=== PATIENT | male | born 1935 | race African-American/Black ===

== ENCOUNTER 2024-05-25 12:14 | Emergency (ER) | payer OTHER, MEDICARE ==
[~2024-05-25] VITALS: Ht 177.8 cm; Wt 90.0 kg
[~2024-05-25 12:14] MED LIST: AMI2 PO; APIX5TAB MT; DIGO-28 PO; IPRA3AMP9 HHN; MIDO5TAB4 PO
[2024-05-25] MEDS: DILTIAZEM HCL 5MG/ML 5ML VIAL IV NR (13:45)
[2024-05-25] MEDS: DILTIAZEM HCL 5MG/ML 5ML VIAL IV ONE (14:33)
[2024-05-25] MEDS: ONDANSETRON HCL 4MG/2ML INJ IV ONE (15:18)
[2024-05-25] MEDS ORDERED: DILTIAZEM HCL 125 MG in DEXT 5% WATER 100 ML IV NR (15:30)
[2024-05-25] MEDS: DILTIAZEM HCL 125 MG in DEXT 5% WATER 100 ML IV ONE (15:57)
[2024-05-25] MEDS ORDERED: CLONIDINE 0.1MG TABLET PO PRN (16:15)
[2024-05-25] MEDS ORDERED: ONDANSETRON HCL 4MG/2ML INJ IV PRN (16:15)
[2024-05-25] MEDS ORDERED: ACETAMINOPHEN 325MG TABLET PO PRN (16:15)
[2024-05-25] MEDS: AMIODARONE 200MG TABLET PO SCH (16:15)
[2024-05-25] MEDS ORDERED: GUAIFENESIN 200MG/10ML SUGAR FREE UDC PO PRN (16:15)
[2024-05-25] MEDS ORDERED: AMIODARONE HCL 50MG/ML 9ML VIAL IV ONE (16:15)
[2024-05-25 16:17] LABS: HEMOGLOBIN. 12.4 g/dL (14.0-18.0); MEAN CORPUSCULAR HEMOGLOBIN 32.8 pg (28.0-32.0); MEAN CORPUSCULAR HGB CONC 32.8 g/dL (31.0-37.0); MEAN CORPUSCULAR VOLUME 100.1 fL (80.0-94.0); MEAN PLATELET VOLUME 7.7 fl (7.4-10.4); PLATELET 433 x1000/uL (130-400); RED BLOOD CELL COUNT 3.79 mill/uL (4.7-6.1); RED CELL DISTRIBUTION WIDTH 14.9 % (11.6-14.6)
[2024-05-25 16:24] LABS: CHLORIDE 101 mEq/L (98-107); POTASSIUM 4.6 mEq/L (3.5-5.1); SODIUM 137 mEq/L (136-145)
[2024-05-25 16:25] LABS: CALCIUM 9.3 mg/dL (8.7-10.4); CARBON DIOXIDE 32 mEq/L (21-32); DIFFERENTIAL COMMENT 1
[2024-05-25 16:30] LABS: CREATININE 1.9 mg/dL (0.6-1.3); GLUCOSE 140 mg/dL (70-105); UREA NITROGEN BLOOD 33 mg/dL (9-23)
[2024-05-25 16:39] LABS: TROPONIN I HIGH SENSITIVITY 1474 ng/L (3.0-53)
[2024-05-25] MEDS: AMIODARONE 360MG/200ML 200 ML IV SCH (16:41)
[2024-05-25 16:45] LABS: PLATELET ESTIMATE NORMAL
[2024-05-25 16:49] LABS: PROTHROMBIN TIME 10.8 sec (9.6-11.0)
[2024-05-25] MEDS ORDERED: HYDROCODONE/ACETAMINOPHEN 5/325MG TABLET PO PRN (16:51)
[2024-05-25] MEDS: ENOXAPARIN 100MG/ML SYR SUBCUT SCH (17:11)
[2024-05-25] MEDS: MORPHINE SULFATE 4 MG/ML INJ (FOR IV/IM USE) IV ONE (17:11)
[2024-05-25 17:40] VITALS: BP 132/55; PULSE 115; RESP 23; O2SAT 87
[2024-05-25] MEDS ORDERED: MIDODRINE HCL 5MG TABLET PO SCH (18:00)
[2024-05-25] MEDS ORDERED: AZITHROMYCIN 500MG/250ML 250 ML IV SCH (18:00)
[2024-05-25] MEDS: DIGOXIN 250MCG TABLET PO SCH (18:00)
[2024-05-25] MEDS ORDERED: METHYLPREDNISOLONE SOD SUCC 40MG/ML (ACT-O-VIAL) IV SCH (18:00)
[2024-05-25] MEDS ORDERED: PIPERACILLIN/TAZO 3.375G/50ML 50 ML IV NR (18:00)
[2024-05-25 19:05] LABS: TROPONIN I HIGH SENSITIVITY 2480 ng/L (3.0-53)
[2024-05-25] MEDS ORDERED: IPRATROPIUM BROMIDE (0.02%) 0.5MG/2.5ML NEB HHN SCH (20:00)
[2024-05-26] MEDS ORDERED: PIPERACILLIN/TAZO 3.375G/50ML 50 ML IV SCH (06:00)
[2024-05-26] MEDS ORDERED: PANTOPRAZOLE SODIUM 40 MG/VIAL IV SCH (09:00)
== END 2024-05-25 18:56 ==
LOC: ER 12:28 → EDBEDREQ 16:03 → EDBEDREQSVC 16:03 → ER 18:56 → CANBEDREQ 05-26 10:21
DX: I46.9 Cardiac arrest, cause unspecified (principal); I11.0 Hypertensive heart disease with heart failure; I50.9 Heart failure, unspecified; F19.90 Other psychoactive substance use, unspecified, uncomplicated; Z79.899 Other long term (current) drug therapy; Z98.890 Other specified postprocedural states
CPT/HCPCS: 80048; 82962; 83880; 85025; 85610; 87040; 84484; 36415; 71045; 92950; 93005; 96365; 96372; 96375; 96376; 99291; J0282; J0456; J3490 ×2; J1650; J2405; J2543; J2270; J7060; Z7610 ×3